=== PATIENT | female | born 1970 | race Caucasian/White ===

== ENCOUNTER → 2017-08-31 16:22 | Outpatient (CLI) | payer MEDICAID, SELFPAY ==
--- NOTE | 2017-08-31 16:26 | HPBI_ITS ---
MAMMOGRAPHY - BILATERAL SCREENING REASON FOR EXAM: Female, 47 years old. Routine annual screening examination. PERTINENT HISTORY: Non-contributory. TECHNIQUE: Digital bilateral breast randall (3D mammographic acquisition) in the CC and MLO projections. 2-D mediolateral oblique (MLO) and craniocaudad (CC) views of both breasts were obtained. CAD: Full Field Digital Mammography with Computer Added Detection was performed. COMPARISON: Comparison is made with prior examination dated July 21, 2016. FINDINGS: Breast Composition: The breasts are almost entirely fatty. There is a 7 mm x 4.9 mm well-defined nodule in the upper lateral anterior portion of the left breast. Correlation with ultrasound is recommended. Stable benign-appearing bilateral axillary lymph nodes. No other significant abnormalities are identified. There has been no significant change since the prior study. HPBI/SCREENING MAMM (CAD), BILAT IMPRESSION: 7 mm x 4.9 mm well-defined nodule in the upper lateral anterior portion of left breast as described. Correlation with ultrasound is recommended. ASSESSMENT CATEGORY: BIRADS Category 0: Incomplete. Need additional imaging evaluation. A letter regarding these results will be sent to the patient by the facility within 30 days. Approximately 10% of breast cancers are not detected by mammography. A normal mammogram should not delay biopsy of a clinically suspicious abnormality. [id number] Electronically Signed: Jovi Rowley MD at 10:48 EST Tel [phone], Service support ,
== END ==
PROVIDERS: Family Provider Family Medicine; PCP Family Medicine; Visit Provider Obstetrics & Gynecology
DX: Z12.31 Encounter for screening mammogram for malignant neoplasm of breast (principal)
CPT/HCPCS: 77063; 77067

== ENCOUNTER → 2017-09-05 12:42 | Outpatient (CLI) | payer MEDICAID, SELFPAY ==
--- NOTE | 2017-09-05 12:44 | US_ITS ---
STUDY: ULTRASOUND BREAST - LEFT REASON FOR EXAM: Female, 47 years old. Abnormal screening mammogram. TECHNIQUE: Axial and longitudinal images of the LEFT breast were performed with a high resolution ultrasound transducer. COMPARISON: Comparison is made with prior mammogram dated August 31, 2017. FINDINGS: LEFT Breast: There is a 7 mm x 5 mm x 3 mm cyst at the 2:30 position of the breast at 4 cm from the nipple. This corresponds to the mammographic findings. US/Breast Limited Unilateral IMPRESSION: 7 mm x 5 mm x 3 mm cyst as described. Routine annual mammographic follow-up is recommended. ASSESSMENT CATEGORY: BIRADS Category 2: Benign. A letter regarding these results will be sent to the patient by the facility within 30 days. Electronically Signed: Jovi Rowley MD at 15:03 EST Tel [phone], Service support ,
== END ==
PROVIDERS: Family Provider Family Medicine; PCP Family Medicine; Visit Provider Obstetrics & Gynecology
DX: N63.0 Unspecified lump in unspecified breast (principal)
CPT/HCPCS: 76642

== ENCOUNTER → 2018-03-07 16:31 | Outpatient (CLI) | payer MEDICAID, SELFPAY ==
[2018-03-07 17:54] LABS: Absolute Lymphocyte Count 2.27 X10^3/ul (0.83-4.51); Basophil# 0.05 X10^3/uL; Basophil% 0.7 % (0-1); Eosinophil# 0.19 X10^3/uL; Eosinophils% 2.7 % (0-5); Hematocrit 37.9 % (37-47); Hemoglobin 11.7 g/dl (12.0-15.0); Lymphocyte # 2.27 X10^3/ul (4.0); Lymphocyte % 32.1 % (19-41); Mean Corp Hgb Conc 30.9 g/gl (32-36); Mean Corpuscular Volume 87.5 fL (81-99); Mean Platelet Vol. 10.3 fl (6.2-12.0); Monocyte# 0.58 X10^3/uL; Monocyte% 8.2 % (0-10); Neutrophil # 3.96 X10^3/uL (2.7-7.7); Platelet Count 391 K/mm3 (150-450); RBC Distribution Width SD 40.5 fl (35.1-43.9); Red Blood Count 4.33 M/mm3 (4.2-5.4); White Blood Count 7.1 K/mm3 (4.4-11.0)
[2018-03-07 17:56] LABS: POSITIVE COUNT NO; POSITIVE DIFFERENTIAL NO; POSITIVE MORPHOLOGY NO
[2018-03-07 18:40] LABS: ALB/GLOB Ratio 0.9 RATIO (0.9-2.4); AST(SGOT) 34 U/L (15-37); Alanine Aminotransfer ALT/SGPT 43 U/L (13-56); Albumin, Serum 3.5 g/dL (3.2-5.0); Alkaline Phosphatase 86 U/L (45-117); Anion Gap 10 (5-15); BUN 8 mg/dL (7-18); BUN/Creat Ratio 10.3 RATIO (10-20); Calcium,Total 8.5 mg/dL (8.5-10.1); Chloride 107 mmol/L (98-107); Creatinine, Serum 0.78 mg/dL (0.55-1.02); EST Glomerular Filtration Rate 84 mL/min (>60); Est Glom Filt Rate - Afr Amer 102 mL/min (>60); Glucose 80 mg/dL (74-106); Potassium 3.6 mmol/L (3.5-5.1); Protein, Total 7.5 g/dL (6.4-8.2); Sodium Level 141 mmol/L (136-145); Thyroid Stim Hormone (TSH) 2.54 uIU/mL (0.358-3.74)
[2018-03-08 08:44] LABS: Vitamin B12 437 pg/mL (211-911); Vitamin D,25 Hydroxy 10.9 ng/mL (29.95-100.01)
== END ==
PROVIDERS: Family Provider Family Medicine; PCP Family Medicine; Visit Provider Family Medicine
DX: R20.2 Paresthesia of skin (principal); E55.9 Vitamin D deficiency, unspecified; M25.473 Effusion, unspecified ankle
CPT/HCPCS: 36415; 80053; 82306; 82607; 82746; 83036; 84443; 85025

== ENCOUNTER → 2019-02-12 16:43 | Outpatient (CLI) | payer MEDICAID, SELFPAY | PROVIDERS: Family Provider Family Medicine; PCP Family Medicine; Visit Provider Obstetrics & Gynecology | DX: Z12.4 Encounter for screening for malignant neoplasm of cervix (principal) ==

== ENCOUNTER → 2019-05-22 08:16 | Outpatient (CLI) | payer MEDICAID, SELFPAY ==
--- NOTE | 2019-05-21 16:15 | TISS_PTH ---
PATIENT: JIMMY UPTON LOC: [facility] U#:[id number] AGE/SX: 54/F ROOM: RE05/22/[address]: Dr. Domitila Paiz MD : 1970 BED: DIS: SPEC #: [id number] RECD: 05/21/19 17:42 STATUS: PRESTON TORRES #: [id number] SOFIE: 05/21/19 16:[address]: Domitila Paiz DEPT: SURGICAL PATHOLOGY RECD BY: Ezequiel Barker Tissues: Skin of abdomen, NOS Procedures: Surgery Specimen Level IV HEADER OPERATION: Mole removal PRE-OP DIAGNOSIS: Mole from abdomen TISSUE SUBMITTED: Mole from abdomen MICROSCOPIC DIAGNOSIS Mole from abdomen, biopsy: Benign vascular proliferation, consistent with capillary hemangioma. SHAHRAM:areli 05/23/19 MICROSCOPIC DESCRIPTION Slides are reviewed. GROSS DESCRIPTION Received is one container labeled with the patient's name and not further designated. The specimen consists of a piece of sosa-white skin measuring 0.5 x 0.3 x 0.2 cm. The entire specimen is submitted in one cassette. It will be bisected at the time of embedding. / SJ:rg 05/22/19 TC:1 CPT: 43205
== END ==
PROVIDERS: Family Provider Family Medicine; PCP Family Medicine; Referring Provider Family Medicine; Visit Provider Family Medicine
DX: D22.5 Melanocytic nevi of trunk (principal)
CPT/HCPCS: 88305

== ENCOUNTER → 2020-07-02 14:44 | Outpatient (CLI) | payer MEDICAID, SELFPAY | PROVIDERS: PCP Family Medicine; Visit Provider Family Medicine | DX: J06.9 Acute upper respiratory infection, unspecified (principal) | CPT/HCPCS: 87635; U0003 ==

== ENCOUNTER → 2020-11-04 16:50 | Outpatient (CLI) | payer MEDICAID, SELFPAY ==
[2020-11-07 20:11] LABS: HPV APTIMA, High Risk Negative (Negative)
== END ==
PROVIDERS: PCP Family Medicine; Visit Provider Student in an Organized Health Care Education/Training Program
DX: Z12.4 Encounter for screening for malignant neoplasm of cervix (principal)
CPT/HCPCS: 87624; 88175; G0145

== ENCOUNTER → 2020-11-10 14:10 | Outpatient (CLI) | payer MEDICAID, SELFPAY ==
--- NOTE | 2020-11-10 14:14 | BI_ITS ---
MAMMOGRAPHY - BILATERAL DIAGNOSTIC REASON FOR EXAM: Female, 50 years old. Right axillary lump. PERTINENT HISTORY: Non-contributory. TECHNIQUE: Digital bilateral breast randall (3D mammographic acquisition) in the CC and MLO projections. 2-D mediolateral oblique (MLO) and craniocaudad (CC) views of both breasts were obtained. CAD: Full Field Digital Mammography with Computer Added Detection was performed. COMPARISON: Comparison is made with prior examination dated 08/31/2017. FINDINGS: Breast Composition: The breasts are almost entirely fatty. The palpable abnormality corresponds to a 1.5 cm x 1.4 cm well-defined dense nodule in the medial axillary region of the right breast. This has increased in size as well as density as compared to prior study. Correlation with ultrasound is recommended. Small benign-appearing bilateral axillary lymph nodes. Stable 5 mm well-defined nodule in the lateral superior anterior aspect of the left breast. No other significant abnormalities are identified. BI/DIAG MAMM W/CAD, BILAT IMPRESSION: 1.5 cm x 1.4 cm well-defined dense nodule in the medial axillary region of the right breast. This is increased in size as compared to prior study. Correlation with ultrasound is recommended. ASSESSMENT CATEGORY: BIRADS Category 0: Incomplete. Need additional imaging evaluation. A letter regarding these results will be sent to the patient by the facility within 30 days. Approximately 10% of breast cancers are not detected by mammography. A normal mammogram should not delay biopsy of a clinically suspicious abnormality. Electronically Signed: Jovi Rowley MD at 15:31 EDT , Service support ,
--- NOTE | 2020-11-10 14:14 | US_ITS ---
STUDY: ULTRASOUND BREAST - RIGHT REASON FOR EXAM: Female, 50 years old. Abnormal screening mammogram. TECHNIQUE: Axial and longitudinal images of the RIGHT breast were performed with a high resolution ultrasound transducer. # OF IMAGES: 12 COMPARISON: Comparison is made with prior mammogram done earlier today. FINDINGS: RIGHT Breast: The palpable abnormality corresponds to a 1.4 cm x 1.4 cm x 0.8 cm cyst just deep to the skin surface. US/Breast Limited Unilateral IMPRESSION: 1.4 cm x 1.4 cm by 0.8 cm cyst just deep to the skin surface. ASSESSMENT CATEGORY: BIRADS Category 2: Benign. A letter regarding these results will be sent to the patient by the facility within 30 days. Electronically Signed: Jovi Rowley MD at 15:34 EDT , Service support ,
== END ==
PROVIDERS: PCP Family Medicine; Referring Provider Student in an Organized Health Care Education/Training Program; Visit Provider Student in an Organized Health Care Education/Training Program
DX: N63.12 Unspecified lump in the right breast, upper inner quadrant (principal); Z12.39 Encounter for other screening for malignant neoplasm of breast
CPT/HCPCS: 76642; 77062; 77066; G0279

== ENCOUNTER → 2021-01-08 16:12 | Outpatient (CLI) | payer MEDICAID, SELFPAY ==
[2020-12-04 14:00] VITALS: BMI 43.4
[2021-01-08 17:57] LABS: Anion Gap 7 (5-15); BUN 14 mg/dL (7-18); Calcium,Total 9.2 mg/dL (8.5-10.1); Chloride 102 mmol/L (98-107); EST Glomerular Filtration Rate 62 mL/min (>60); Est Glom Filt Rate - Afr Amer 75 mL/min (>60); Glucose 114 mg/dL (74-106); Potassium 3.9 mmol/L (3.5-5.1); Sodium Level 140 mmol/L (136-145)
== END ==
PROVIDERS: PCP Family Medicine; Visit Provider Family Medicine
DX: I10 Essential (primary) hypertension (principal)
CPT/HCPCS: 36415; 80048

== ENCOUNTER → 2021-02-11 17:47 | Outpatient (CLI) | payer MEDICAID, SELFPAY ==
[2020-12-04 14:00] VITALS: BMI 43.4
[2021-02-11 18:58] LABS: Probe Check PASS; Specimen Processing Control PASS
== END ==
PROVIDERS: PCP Family Medicine; Visit Provider Family Medicine
DX: U07.1 COVID-19 (principal)
CPT/HCPCS: 87635; U0005; U0003

== ENCOUNTER 2021-07-14 16:33 | Outpatient (CLI) | payer MEDICAID, SELFPAY ==
[2021-07-14 18:29] LABS: Anion Gap 9 (5-15); BUN 15 mg/dL (7-18); BUN/Creat Ratio 18.9 RATIO (10-20); Calcium,Total 9.3 mg/dL (8.5-10.1); Chloride 99 mmol/L (98-107); Cholesterol 183 mg/dL (200); EST Glomerular Filtration Rate 81 mL/min (>60); Est Glom Filt Rate - Afr Amer 98 mL/min (>60); Glucose 118 mg/dL (74-106); High Density Lipoprotein 35 mg/dL; Potassium 3.8 mmol/L (3.5-5.1); Sodium Level 139 mmol/L (136-145); Triglycerides 203 mg/dL; Very Low Density Lipoprotein 41 mg/dL (5-40)
[2021-07-14 18:38] LABS: Microalbumin,Random Urine 14.7 mg/L (NO RANGE EST.); Microalbumin:Creatinine Ratio 11.3 mg/g CRE (<30 mg/g CRE)
== END 2021-07-14 23:59 | disposition short-term general hospital (02) ==
LOC: MFPLAB 16:34
PROVIDERS: PCP Family Medicine; Referring Provider Family Medicine; Visit Provider Family Medicine
DX: I10 Essential (primary) hypertension (principal)
CPT/HCPCS: 36415; 80048; 80061; 82043; 82570

== ENCOUNTER 2021-09-18 06:42 | Day surgery (SDC) | payer MEDICAID, SELFPAY ==
[2021-09-18] VITALS (8 sets, daily range): BP systolic 92–122; BP diastolic 57–76; PULSE 86–95; RESP 16–18; TEMP 36.2–36.5; O2SAT 96–99; BMI 42.2
[2021-09-18] MEDS: Lactated Ringers 1,000 ML 15 ML IV (07:24)
[2021-09-18 07:27] LABS: Internal QC Validated? YES +Cl - CLEAR BKGD; Pregnancy, Urine Negative Negative
--- NOTE | 2021-09-18 07:40 | HP.PCM_ITS ---
HPI - General HPI Narrative JIMMY UPTON, is a 51 F who presents for screening colonoscopy today. She presents via open access. She has not had a previous exam. She has not achieved a clear bowel prep at the moment and is receiving enemas. [facility] Medical History (Updated 09/18/21 @ 07:[address] Kel Charles MD) Alcohol use Anemia Anxiety and depression Back pain CPAP (continuous positive airway pressure) dependence Former smoker History of edema History of pain when walking History of steroid therapy HTN (hypertension) Leg cramps Marijuana use Shortness of breath on exertion Sleep apnea Wears glasses Wears partial dentures Home Medications alprazolam 0.25 mg tablet 0.25 mg PO PRN PRN tab 12/04/20 [History Last Taken Unknown] duloxetine 60 mg capsule,delayed release 60 mg PO DAILY cap 12/04/20 [History Last Taken Unknown] losartan 100 mg-hydrochlorothiazide 12.5 mg tablet 1 tab PO DAILY tab 12/04/20 [History Last Taken Unknown] Allergy/AdvReac Type Severity Reaction Status Date / Time No Known Allergies Allergy Verified 09/18/21 07:06 Family History (Updated 12/04/20 @ 13:59 by Cecy Urrutia) Father Hypertension Cancer skin Surgical History (Updated 12/04/20 @ 13:59 by Cecy Urrutia) History of section History of laparoscopic cholecystectomy Social History (Updated 12/04/20 @ 13:59 by Cecy Urrutia) Smoking Status: Former smoker ROS Constitutional Constitutional: Reports systems reviewed and no addt'l complaints, except as documented Cardiovascular Cardiovascular: Denies chest pain Respiratory/Chest Respiratory/Chest: Denies shortness of breath at rest Gastrointestinal Gastrointestinal: Denies abdominal pain, change in bowel habits, hematochezia or melena Vital Signs Vital Signs Vital Signs: 09/18/21 07:07 09/18/21 07:08 Temperature 97.2 F L Temperature Source Temporal Pulse Rate 95 Respiratory Rate 18 Respiratory Pattern Normal Blood Pressure Source Monitor Blood Pressure Position Semi-Fowlers Blood Pressure Location Right Arm Pulse Ox 99 Oxygen Delivery Method Room Air Weight Weight: 269 lb 6.4 oz Body Mass Index (BMI) 42.2 Physical Exam Const alert, oriented x3 and no apparent distress General Appearance: cooperative and comfortable Eyes General Eye: normal appearance of both eyes Neck General: normal visual inspection Chest inspection of chest normal Resp Effort and Inspection: able to speak in complete sentences and symmetric chest movement Auscultation: clear to auscultation bilaterally Cardio regular rate and regular rhythm GI soft to palpation, non-tender and non-distended Extremity no calf tenderness Neuro oriented x3 Psych thought process normal Results Lab / Micro Data Labs: Laboratory Results - last 24 hr 09/18/21 06:50: Urine Test Negative Assessment & Plan Assessment/Plan (1) Screening for intestinal cancer: PLAN: If we are able to achieve a clean bowel prep then we will proceed with a screening colonoscopy with possible biopsy or polypectomy as indicated. She is aware of technique, benefit, risk, alternatives. Grandmother had colon cancer. Patient is aware if we cannot achieve an adequate bowel prep then will need to reprep and reschedule. Kel Charles M.D., F.A.C.S.
--- NOTE | 2021-09-18 08:00 | COLBX_PTH ---
PATIENT: JIMMY UPTON LOC: [facility] U#:[id number] AGE/SX: 51/F ROOM: RE09/18/[address]: Dr. Kel Charles MD : 1970 BED: DIS: 09/18/2021 SPEC #: [id number] RECD: 09/18/21 12:24 STATUS: PRESTON TORRES #: [id number] SOFIE: 09/18/21 08:[address]: Kel Charles DEPT: SURGICAL PATHOLOGY RECD BY: Shanell Osorio ENTERED: 09/18/21 13:17 SP TYPE: COLON BX OTHR DR: Dr. Domitila Paiz MD Tissues: A - Transverse colon B - Cecum, NOS C - Transverse colon D - Rectum, NOS Procedures: Surgery Specimen Level IV HEADER OPERATION: Colonoscopy ? open access (MAC) PRE-OP DIAGNOSIS: Screening TISSUE SUBMITTED: A - Mid transverse colon polyp, B - Cecum polyp, C - Distal transverse colon polyp, D - Rectum polyp MICROSCOPIC DIAGNOSIS A. Mid transverse colon polyp, biopsy: Fragments of tubular adenoma. B. Cecum polyp, biopsy: Fragments of tubular adenoma. C. Distal transverse colon polyp, biopsy: Tubular adenoma. D. Rectal polyp, biopsy: Hyperplastic polyp. AM:areli 09/21/2021 MICROSCOPIC DESCRIPTION Slides are reviewed. GROSS DESCRIPTION A - Received in fixative is one container labeled with the patient's name and designated mid transverse colon polyp. The specimen consists of two irregular fragments of light sosa soft tissue that in aggregate measure 0.7 x 0.6 x 0.2 cm. The specimen is totally submitted in one cassette. B - Received in fixative is one container labeled with the patient's name and designated cecal polyp. The specimen consists of multiple irregular fragments of light sosa soft tissue that in aggregate measure 1 x 0.2 x 0.1 cm. The specimen is totally submitted in one cassette. C - Received in fixative is one container labeled with the patient's name and designated distal transverse polyp. The specimen consists of one irregular fragment of light sosa soft tissue that measures 0.3 x 0.3 x 0.1 cm. The specimen is totally submitted in one cassette. D - Received in fixative is one container labeled with the patient's name and designated rectal polyp. The specimen consists of one irregular fragment of light sosa soft tissue that measures 0.2 x 0.2 x 0.1 cm. The specimen is totally submitted in one cassette. / AM:areli 09/18/2021 TC:5 CPT: 38530 x4
--- NOTE | 2021-09-18 08:52 | OP.COLON_ITS ---
Patient Name: Tatyana Joseph Procedure Date: 09/18/2021 8:16 AM Date of : 1970 Age: 51 Procedure: Colonoscopy Indications: Screening for colorectal malignant neoplasm Providers: Kel Charles MD Medicines: See the Anesthesia note for documentation of the administered medications Patient Profile: Last Colonoscopy: none. The patient's first colonoscopy is today. Complications: No immediate complications. Procedure: Pre-Anesthesia Assessment: - Prior to the procedure, a History and Physical was performed, and patient medications and allergies were reviewed. The patient's tolerance of previous anesthesia was also reviewed. The risks and benefits of the procedure and the sedation options and risks were discussed with the patient. All questions were answered, and informed consent was obtained. Prior Anticoagulants: The patient has taken no previous anticoagulant or antiplatelet agents. ASA Grade Assessment: III - A patient with severe systemic disease. After reviewing the risks and benefits, the patient was deemed in satisfactory condition to undergo the procedure. After I obtained informed consent, the scope was passed under direct vision. Throughout the procedure, the patient's blood pressure, pulse, and oxygen saturations were monitored continuously. The adult colonoscope was introduced through the anus and advanced to the cecum, identified by appendiceal orifice and ileocecal valve. The colonoscopy was performed without difficulty. The patient tolerated the procedure well. The quality of the bowel preparation was fair. The ileocecal valve and the appendiceal orifice were photographed. Scope In: 8:18:53 AM Scope Withdrawal Time 0 hours 18 minutes 33 seconds Scope Out: 8:44:12 AM Total Procedure Duration Time 0 hours 25 minutes 19 seconds Findings: The perianal and digital rectal examinations were normal. A 6 mm polyp was found in the cecum. The polyp was sessile. The polyp was removed with a cold biopsy forceps. Resection and retrieval were complete. A 5 mm polyp was found in the mid transverse colon. The polyp was sessile. The polyp was removed with a cold biopsy forceps. Resection and retrieval were complete. A 6 mm polyp was found in the distal transverse colon. The polyp was sessile. The polyp was removed with a cold biopsy forceps. Resection and retrieval were complete. A 3 mm polyp was found in the rectum. The polyp was sessile. The polyp was removed with a cold biopsy forceps. Resection and retrieval were complete. A few diverticula were found in the sigmoid colon. Impression: - Preparation of the colon was fair. - One 6 mm polyp in the cecum, removed with a cold biopsy forceps. Resected and retrieved. - One 5 mm polyp in the mid transverse colon, removed with a cold biopsy forceps. Resected and retrieved. - One 6 mm polyp in the distal transverse colon, removed with a cold biopsy forceps. Resected and retrieved. - One 3 mm polyp in the rectum, removed with a cold biopsy forceps. Resected and retrieved. - Diverticulosis in the sigmoid colon. Recommendation: - Discharge patient to home. - Resume previous diet. - Continue present medications. - Repeat colonoscopy in 3 years for surveillance based on pathology results. - Telephone my office for pathology results in 1 week. Procedure Code(s): --- Professional --- 46734, Colonoscopy, flexible; with biopsy, single or multiple Diagnosis Code(s): --- Professional --- Z12.11, Encounter for screening for malignant neoplasm of colon D12.0, Benign neoplasm of cecum D12.3, Benign neoplasm of transverse colon (hepatic flexure or splenic flexure) K62.1, Rectal polyp K57.30, Diverticulosis of large intestine without perforation or abscess without bleeding CPT copyright 2017 [employer]. All rights reserved. The codes documented in this report are preliminary and upon food counter attendant review may be revised to meet current compliance requirements. Kel Charles MD 09/18/2021 8:51:50 AM This report has been signed electronically. Number of Addenda: 0 Note Initiated On: 09/18/2021 8:16 AM
--- NOTE | 2021-09-18 08:53 | OP.CCLET_ITS ---
09/18/2021 Domitila Paiz [address] [place] [address] Re : Colonoscopy procedure for [facility] Dear Dr. Paiz This procedure was performed on Saturday, September 18, 2021. My impressions and recommendations are as follows: Impressions : - Preparation of the colon was fair. - One 6 mm polyp in the cecum, removed with a cold biopsy forceps. Resected and retrieved. - One 5 mm polyp in the mid transverse colon, removed with a cold biopsy forceps. Resected and retrieved. - One 6 mm polyp in the distal transverse colon, removed with a cold biopsy forceps. Resected and retrieved. - One 3 mm polyp in the rectum, removed with a cold biopsy forceps. Resected and retrieved. - Diverticulosis in the sigmoid colon. Recommendations : - Discharge patient to home. - Resume previous diet. - Continue present medications. - Repeat colonoscopy in 3 years for surveillance based on pathology results. - Telephone my office for pathology results in 1 week. My findings are described in the full procedure note, which is enclosed. If I can be of further assistance, please feel free to contact me at Doctor phone number(s): Work: . Sincerely, Kel Charles MD 09/18/2021 8:51:50 AM This report has been signed electronically.
== END 2021-09-18 23:59 | disposition home or self-care (01) ==
LOC: EN 06:43 → AC 06:44
PROVIDERS: Anesthesiology; PCP Family Medicine; Referring Provider Family Medicine; Visit Provider Surgery
PROC: 0DJD8ZZ Inspection of Lower Intestinal Tract, Via Natural or Artificial Opening Endoscopic (ICD-10-PCS; CPT 45378; principal; 2021-09-18 07:55)
DX: Z12.11 Encounter for screening for malignant neoplasm of colon (principal); D12.0 Benign neoplasm of cecum; D12.3 Benign neoplasm of transverse colon; K57.30 Diverticulosis of large intestine without perforation or abscess without bleeding; K62.1 Rectal polyp; I10 Essential (primary) hypertension; G47.30 Sleep apnea, unspecified; F32.A Depression, unspecified; F41.9 Anxiety disorder, unspecified; Z79.899 Other long term (current) drug therapy; Z87.891 Personal history of nicotine dependence
CPT/HCPCS: 45380; 81025; 87426; 88305; J7120; J2405

== ENCOUNTER → 2021-11-11 | Outpatient (CLI) | payer MEDICAID, SELFPAY ==
--- NOTE | 2021-11-11 16:14 | BI_ITS ---
MAMMOGRAPHY - BILATERAL SCREENING REASON FOR EXAM: Female, 51 years old. Routine annual screening examination. PERTINENT HISTORY: Non-contributory. TECHNIQUE: Digital bilateral breast denzel (3D mammographic acquisition) in the CC and MLO projections. 2-D mediolateral oblique (MLO) and craniocaudad (CC) views of both breasts were obtained. CAD: Full Field Digital Mammography with Computer Added Detection was performed. COMPARISON: Comparison is made with prior study dated 11/10/2020 and 08/31/2017. FINDINGS: Breast Composition: The breasts are almost entirely fatty. There are no dominant masses or suspicious calcifications. Stable 1.5 cm x 1.4 cm well-defined nodule in the medial axillary region of the right breast. This likely corresponds to the sebaceous cyst. Stable 5 mm well-defined nodule in the lateral superior anterior aspect of the left breast No other significant abnormalities are identified. There has been no significant change since the prior study. BI/SCRN MAMM (CAD)W/DENZEL BILAT IMPRESSION: Stable bilateral screening mammogram. Yearly follow-up mammogram recommended. (A) ASSESSMENT CATEGORY: BIRADS Category 2: Benign. A letter regarding these results will be sent to the patient by the facility within 30 days. Approximately 10% of breast cancers are not detected by mammography. A normal mammogram should not delay biopsy of a clinically suspicious abnormality. [id number] Electronically Signed: Jovi Rowley MD at 8:47 EDT ,
== END | disposition home or self-care (01) ==
PROVIDERS: PCP Family Medicine; Visit Provider Family Medicine
DX: Z12.31 Encounter for screening mammogram for malignant neoplasm of breast (principal)
CPT/HCPCS: 77063; 77067

== ENCOUNTER → 2023-10-11 | Outpatient (CLI) | payer BC, SELFPAY ==
--- NOTE | 2023-10-11 16:32 | BI_ITS ---
MAMMOGRAPHY - BILATERAL SCREENING REASON FOR EXAM: Female, 53 years old. Routine annual screening examination. PERTINENT HISTORY: Non-contributory. TECHNIQUE: Digital bilateral breast denzel (3D mammographic acquisition) in the CC and MLO projections. 2-D mediolateral oblique (MLO) and craniocaudad (CC) views of both breasts were obtained. CAD: Full Field Digital Mammography with Computer Added Detection was performed. COMPARISON: Comparison is made with prior study dated November 11, 2021 and November 10, 2020. FINDINGS: Breast Composition: The breasts are almost entirely fatty. There are no dominant masses or suspicious calcifications. Stable small benign-appearing bilateral axillary lymph nodes. No other significant abnormalities are identified. There has been no significant change since the prior study. BI/SCRN MAMM (CAD)W/DENZEL BILAT IMPRESSION: Stable bilateral screening mammogram. Yearly follow-up mammogram recommended. (A) ASSESSMENT CATEGORY: BIRADS Category 2: Benign. A letter regarding these results will be sent to the patient by the facility within 30 days. Approximately 10% of breast cancers are not detected by mammography. A normal mammogram should not delay biopsy of a clinically suspicious abnormality. [id number] Electronically Signed: Jovi Rowley MD at 9:32 EDT ,
== END | disposition home or self-care (01) ==
LOC: OPBI 10-12 07:21
PROVIDERS: PCP Family Medicine; Referring Provider Family Medicine; Visit Provider Family Medicine
DX: Z12.31 Encounter for screening mammogram for malignant neoplasm of breast (principal)
CPT/HCPCS: 77063; 77067

== ENCOUNTER → 2024-03-13 | Outpatient (CLI) | payer BC, SELFPAY ==
[2024-03-13 17:46] LABS: Protein, Urine (Random) 50.8 mg/dL (<11.9); Protein:Creat Ratio 181 mg/g CRE (0-200)
[2024-03-13 18:28] LABS: Anion Gap 7 (5-15); BUN 12 mg/dL (7-18); BUN/Creat Ratio 12.3 RATIO (10-20); Calcium,Total 9.6 mg/dL (8.5-10.1); Chloride 106 mmol/L (98-107); Cholesterol 167 mg/dL (200); Creatinine, Serum 0.97 mg/dL (0.55-1.02); EST Glomerular Filtration Rate 63 mL/min (>60); Est Glom Filt Rate - Afr Amer 77 mL/min (>60); Glucose 103 mg/dL (74-106); High Density Lipoprotein 33 mg/dL; Potassium 3.6 mmol/L (3.5-5.1); Sodium Level 139 mmol/L (136-145); Triglycerides 105 mg/dL; Very Low Density Lipoprotein 21 mg/dL (5-40)
== END | disposition home or self-care (01) ==
LOC: MFPLAB 16:53
PROVIDERS: PCP Family Medicine; Visit Provider Family Medicine
DX: I10 Essential (primary) hypertension (principal)
CPT/HCPCS: 36415; 80048; 80061; 82570; 84156